=== PATIENT | female | born 1970 | race African-American/Black ===

== ENCOUNTER 2024-08-01 00:19 | Emergency (ER) | payer OTHER ==
[2024-08-01 00:25] VITALS: BP 143/68; PULSE 86; RESP 20; TEMP 98.2; BMI 36.9
[2024-08-01] MEDS ORDERED: METOCLOPRAMIDE HCL 10 MG TABLET (FP) PO ONE (00:59)
[2024-08-01] MEDS ORDERED: IBUPROFEN 600 MG TABLET (FP) PO ONE (00:59)
[2024-08-01] MEDS: METOCLOPRAMIDE HCL 10 MG TABLET (FP) PO ONE (01:03)
[2024-08-01] MEDS: IBUPROFEN 600 MG TABLET (FP) PO ONE (01:03)
== END 2024-08-01 02:24 | disposition home or self-care (01) ==
LOC: JER 00:19
DX: G43.909 Migraine, unspecified, not intractable, without status migrainosus (principal)
CPT/HCPCS: 93005; 93010; 99283-25